=== PATIENT | male | born 2000 | race Caucasian/White ===

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

== ENCOUNTER 2019-01-09 17:07 | Emergency (ER) | payer SELFPAY ==
[~2019-01-09] VITALS: Ht 175.2 cm; Wt 129.3 kg
[2019-01-09 17:07] VITALS: BP 137/68
[2019-01-09] MEDS ORDERED: Motrin,Rufen800 MG PO (17:58)
== END 2019-01-09 18:10 | disposition home or self-care (01) ==
LOC: ED 17:07
DX: S93.401A Sprain of unspecified ligament of right ankle, initial encounter (principal); W18.42XA Slipping, tripping and stumbling without falling due to stepping into hole or opening, initial encounter; Y93.89 Activity, other specified; Y92.89 Other specified places as the place of occurrence of the external cause; Y99.8 Other external cause status